=== PATIENT | male | born 2000 | race Caucasian/White ===

== ENCOUNTER 2024-01-01 10:11 | Emergency (ER) | payer OTHER ==
[2024-01-01 11:52] VITALS: BP 101/65; PULSE 68; RESP 20; TEMP 98.6; BMI 19.3
== END 2024-01-01 11:20 | disposition home or self-care (01) ==
LOC: FER 10:11
DX: S00.01XA Abrasion of scalp, initial encounter (principal); X58.XXXA Exposure to other specified factors, initial encounter
CPT/HCPCS: 99282-25

== ENCOUNTER 2024-03-14 13:48 | Emergency (ER) | payer OTHER ==
[2024-03-14] MEDS ORDERED: risperiDONE 1 MG TABLET ONE (14:09)
[2024-03-14] MEDS: risperiDONE 0.5 MG TABLET PO ONE (14:12)
[2024-03-14 14:30] VITALS: BP 134/82; PULSE 69; RESP 19; TEMP 98.2; BMI 36.8
== END 2024-03-14 14:20 | disposition home or self-care (01) ==
LOC: FER 13:48
DX: Z76.0 Encounter for issue of repeat prescription (principal)
CPT/HCPCS: 99283-25

== ENCOUNTER 2024-03-22 14:47 | Emergency (ER) | payer OTHER ==
[2024-03-22 15:00] VITALS: BP 132/81; PULSE 81; RESP 16; TEMP 98; BMI 22.8
== END 2024-03-22 16:00 | disposition home or self-care (01) ==
LOC: FER 14:47
DX: Z76.0 Encounter for issue of repeat prescription (principal)
CPT/HCPCS: 99283-25